=== PATIENT | male | born 1940 | race Caucasian/White ===

== ENCOUNTER → 2016-05-18 | Outpatient (REF) | payer MEDICARE ==
[2016-05-18 18:54] LABS: PERCENT SATURATION 21.9 % (19.7-37.4)
== END | disposition home or self-care (01) ==
LOC: M LAB REF 17:06
PROVIDERS: ATTEND Internal Medicine Nephrology
DX: D64.9 Anemia, unspecified (principal)

== ENCOUNTER → 2020-11-15 | Outpatient (REF) | payer MEDICARE | LOC: M LAB REF 19:12 | PROVIDERS: ATTEND Dermatology | DX: C44.601 Unspecified malignant neoplasm of skin of unspecified upper limb, including shoulder (principal) ==

== ENCOUNTER → 2020-12-08 | Outpatient (REF) | payer OTHER, MEDICARE | LOC: M LAB REF 08:24 | PROVIDERS: ATTEND Dermatology | DX: C44.622 Squamous cell carcinoma of skin of right upper limb, including shoulder (principal); L57.8 Other skin changes due to chronic exposure to nonionizing radiation; Z79.01 Long term (current) use of anticoagulants ==

== ENCOUNTER → 2020-12-20 | Outpatient (REF) | payer OTHER, MEDICARE | LOC: M LAB REF 17:25 | PROVIDERS: ATTEND Physician Assistant | DX: Z51.89 Encounter for other specified aftercare (principal) ==

== ENCOUNTER → 2020-12-22 | Outpatient (REF) | payer OTHER, MEDICARE | LOC: M LAB REF 17:22 | PROVIDERS: ATTEND Dermatology | DX: D23.62 Other benign neoplasm of skin of left upper limb, including shoulder (principal) ==

== ENCOUNTER → 2021-03-01 | Outpatient (REF) | payer OTHER, MEDICARE | LOC: M LAB REF 19:11 | PROVIDERS: ATTEND Dermatology | DX: L81.4 Other melanin hyperpigmentation (principal) ==

== ENCOUNTER → 2021-03-10 | Outpatient (REF) | payer OTHER, MEDICARE | LOC: M LAB REF 17:34 | PROVIDERS: ATTEND Dermatology | DX: T14.90XD Injury, unspecified, subsequent encounter (principal) ==